=== PATIENT | male | born 1950 | race Caucasian/White ===

== ENCOUNTER → 2023-07-28 04:27 | Outpatient (CLI) | payer MEDICARE, SELFPAY ==
--- NOTE | 2023-07-28 | DI.MRI_ITS ---
Exam(s) MR BRAIN WO/W EXAM: MR BRAIN WO/W CLINICAL HISTORY: essential tremor,G25.0 TECHNIQUE: Multiplanar multisequence MRI of the brain was performed. CONTRAST MATERIAL: IV Contrast: 20 mL of Dotarem contrast administered. COMPARISON: MR MRI BRAIN WITHOUT CONTRAST from 06/06/2022 FINDINGS: VENTRICLES AND EXTRA AXIAL SPACES: Normal in size and morphology for the patient's age. HEMORRHAGE: None. CEREBRAL PARENCHYMA: No focus of restricted diffusion to suggest acute infarct. No space-occupying le caryl identified. Multiple foci of hyperintense signal in the white matter on the FLAIR and T2 weighte d images consistent with chronic microvascular ischemic disease. MIDLINE SHIFT: None. BRAINSTEM/CEREBELLUM: Normal. CALVARIUM: Normal. ENHANCEMENT: No suspicious enhancement identified. VISUALIZED PARANASAL SINUSES/MASTOIDS: Clear. [place]: Normal flow void. [place]: Unremarkable. OTHER FINDINGS: IMPRESSION: 1. Findings of chronic microvascular ischemic disease. 2. No acute intracranial process, infarct/mass or enhancing lesion. DATA REPOSITORY:
[2023-07-28 13:27] LABS: CREATININE 1.1 mg/dL (0.70-1.30); Estimated GFR 70.44 (mL/min/1.73m2)
[2023-07-28] MEDS: Normal Saline Flush 10 ML SYR IVP (13:43)
[2023-07-28] MEDS: Gadoterate meglumine 20 ML SYRINGE IVP (13:44)
== END ==
PROVIDERS: PCP Family Medicine; Visit Provider Neurological Surgery
DX: G25.0 Essential tremor (principal); I67.82 Cerebral ischemia
CPT/HCPCS: 70553; 82565

== ENCOUNTER → 2023-09-01 03:44 | Outpatient (CLI) | payer MEDICARE, SELFPAY ==
--- NOTE | 2023-09-01 15:17 | DI.RAD_ITS ---
Exam(s) XR LUMBAR SPINE COMPLETE EXAM: XR LUMBAR SPINE COMPLETE CLINICAL HISTORY: low back pain,m54.9. TECHNIQUE: 2D digital imaging was performed. COMPARISON: No exams were available for comparison FINDINGS: Eight views. There is transitional anatomy. There are 6 non rib-bearing vertebrae of lumbar configuration No evidence of fracture nor listhesis nor pars interarticularis defects. No significant scoliosis. There is mild multilevel disc space narrowing. There is multilevel facet arthropathy. No osseous le sions. Sacroiliac joints appear unremarkable. No osseous lesions.. IMPRESSION: Findings as above. Please also note that there is transitional anatomy in the lumbar spine. DATA REPOSITORY: RADIATION DOSE DELIVERED:
== END ==
PROVIDERS: PCP Family Medicine; Visit Provider Family Medicine
DX: M54.9 Dorsalgia, unspecified (principal)
CPT/HCPCS: 72110

== ENCOUNTER 2023-09-08 05:13 | Outpatient (CLI) | payer MEDICARE, SELFPAY ==
[2023-09-08 09:01] LABS: Anion Gap 7.5 mmol/L (3-11); BUN 25 mg/dL (7-18); CO2 30.5 mmol/L (21.0-32.0); CREATININE 1.2 mg/dL (0.70-1.30); Calcium 9.2 mg/dL (8.5-10.1); Calculated LDL 93 mg/dL (<100); Chloride 107 mmol/L (98-107); Cholesterol 170 mg/dL (<200); Estimated GFR 63.46 (mL/min/1.73m2); Glucose 114 mg/dL (74-106); HDL Cholesterol 61 mg/dL (40-60); Potassium 4.2 mmol/L (3.5-5.1); Sodium 145 mmol/L (136-145); Triglyceride 82 mg/dL (<150)
== END 2023-09-08 05:14 | disposition home or self-care (01) ==
LOC: LBO 05:13
PROVIDERS: PCP Family Medicine; Visit Provider Family Medicine
DX: E87.1 Hypo-osmolality and hyponatremia (principal); Z12.5 Encounter for screening for malignant neoplasm of prostate
CPT/HCPCS: 36415; 80048; 80061; 84153

== ENCOUNTER → 2023-10-21 01:40 | Outpatient (CLI) | payer MEDICARE, SELFPAY ==
--- NOTE | 2023-10-21 | DI.MRI_ITS ---
Exam(s) MR LUMBAR SPINE WO EXAM: MR LUMBAR SPINE WO CLINICAL HISTORY: PARESTHESIAS,R20.2,SPINAL STENOSIS WITH NEUROGENIC CLAUDICATION,M48.062. TECHNIQUE: Multiplanar multisequence MRI of the Lumbar spine was performed. COMPARISON: CR XR LUMBAR SPINE COMPLETE from 09/01/2023 FINDINGS: There is transitional anatomy with 6 non rib-bearing vertebrae of lumbar configuration. See plain fi lm images of 09/01/2023. Conus medullaris is at normal level. There is no evidence of conus mass nor subjacent clumping of in trathecal nerve roots to suggest arachnoiditis. The distal thecal sac appears unremarkable.There is no evidence of Tarlov intrasacral cysts nor other significant findings within the sacral canal Bones:There are no fractures nor ominous osseous lesions in the lumbar vertebral bodies and visualize d sacrum. There is mild anterolisthesis of L4 upon L5. There is some intraosseous bone edema in the right-sided pedicles of L4 and L5, as best seen on the STIR images. Possible subtle fracture or par s defect on the right side at this level at L4. With respect to the individual levels... T12-L1: Unremarkable L1-2: Mild annular bulging. No prominent disc herniation nor central canal stenosis.Central canal di mensions are lower normal. No foraminal stenosis. L2-3: There is relatively preserved disc height but decreased disc hydration signal and annular bulgi ng which is most prominent on the left side extending into the floor of the exiting left neural walter en. There is mild-moderate central spinal canal stenosis at this level due to short AP dimensions th e pedicles, annular bulging and mild degenerative changes in the facet joints at this level. There i s mild foraminal stenosis on the left side. No significant foraminal stenosis on the right side. L3-4: Normal disc height. There is broad symmetrical annular bulging without a dominant disc herniat ion. There is moderate central spinal canal stenosis due to short AP dimensions of the pedicles, the broad annular bulging and degenerative changes in the facet joints-moderate.There is no significant foraminal stenosis at this level.There is moderate bilateral facet arthropathy. L4-5: This level exhibits preserved disc height. There is a small benign intraosseous hemangioma in the left side of the L4 vertebral body. There is mild degenerative anterolisthesis L4 upon L5. Mild -moderate central spinal canal stenosis noted. This is related to annular bulging and short AP dimen sions the pedicles and degenerative changes in the facet joints. There is mild-moderate foraminal st enosis bilaterally at this level. L5-S1: Normal disc height and signal. No disc herniation or central spinal canal stenosis. No walter inal stenosis. No obvious facet arthropathy evident at this level. Soft tissues: paraspinal soft tissues appear unremarkable. IMPRESSION: 1. Multilevel mild-moderate central canal stenosis at L2-3, L3-4, and L4-5 levels which is most relat ed to short AP dimensions the pedicles, broad annular bulging and facet arthropathy. There is mild d egenerative anterolisthesis L4 upon L5. 2. Bone edema is noted in the right-sided pedicles at L4 and L5 level. Possible subtle right-sided p ars defect at this level versus subtle stress fractures. Can be further studied with CT scan with mu ltiplanar slice imaging through this area. 3. Other findings as above. DATA REPOSITORY:
== END ==
PROVIDERS: PCP Family Medicine; Visit Provider Nurse Practitioner Family
DX: M48.062 Spinal stenosis, lumbar region with neurogenic claudication (principal); R20.2 Paresthesia of skin
CPT/HCPCS: 72148

== ENCOUNTER 2024-02-08 10:42 | Outpatient (CLI) | payer MEDICARE, SELFPAY ==
--- NOTE | 2024-02-08 | DI.US_ITS ---
Exam(s) US LOWER EXTREMITY VENOUS RT EXAM: US LOWER EXTREMITY VENOUS RT CLINICAL HISTORY: Essential tremor, G25.0, Rt leg swelling, ? DVT, h/o DVT in lt leg TECHNIQUE: Grayscale, color, and doppler imaging of the deep venous system of the lower extremity w as performed. COMPARISON: No exams were available for comparison FINDINGS: This is positive-abnormal study with extensive DVT in the right lower extremity. There is extensive intraluminal thrombus within the right femoral vein throughout the length of the thigh and continuous into the popliteal vein and paired peroneal veins of the calf and there is also intraluminal thrombu s noted within the posterior tibial veins of the calf. The ipsilateral saphenous vein is patent throughout its length IMPRESSION: 1. Extensive DVT in the right lower extremity from the groin down through the calf as described soo juarez. This patient is at high risk for pulmonary embolus. DATA REPOSITORY:
== END 2024-02-08 11:02 ==
LOC: DI 10:43
PROVIDERS: PCP Family Medicine; Visit Provider Psychiatry & Neurology Neurology
DX: I82.411 Acute embolism and thrombosis of right femoral vein
CPT/HCPCS: 93971

== ENCOUNTER 2024-06-13 02:04 | Outpatient (CLI) | payer MEDICARE, SELFPAY ==
--- NOTE | 2024-06-13 14:51 | DI.RAD_ITS ---
Exam(s) RF MODIFIED SPEECH BA SWALLOW EXAM: RF MODIFIED SPEECH BA SWALLOW CLINICAL HISTORY: DYSARTHRIA, R47.1, DYSPHAGIA TECHNIQUE: Modified barium swallow was performed in conjunction with speech pathology. CONTRAST MATERIAL: Multiple consistencies of oral barium contrast were administered. COMPARISON: No exams were available for comparison FINDINGS: Note that this is not a dedicated esophagram, distal esophagus not evaluated. There is no evidence of aspiration or penetration with any consistency. There is mild vallecular res idue. There are endplate osteophytes which project anteriorly at C5-6. Barium tablet passed into the stomach without delay. Speech pathology report to follow. IMPRESSION: No evidence of aspiration or penetration. RADIATION DOSE DELIVERED: oscar [place]en[place]=9.31 mGy
--- NOTE | 2024-06-13 15:01 | ST.MBS_ITS ---
Date of Service Date of service: 06/13/24 Time of Service: 15:01 Modified Barium Swallow Study Findings: Video fluoroscopic Swallowing Evaluation (VFSE) / Modified Barium Swallow Study (MBSS) Speech Language Pathology Report Patient referred for VFSE/MBSS from Dr. Lopez Raygoza, Neurology given dysphagia and dysarthria in setting of DBS surgery for essential tremor. HPI & Patient report of function: Patient is a 74 year old M with essential tremor s/p DBS surgery now with residual dysarthria and some swallowing difficulties resulting from this. Patient reports that he developed dysarthria as a result of the stimulation, which has not resolved. He also reports increased difficulty with managing secretions, finds that he gets choked up on his saliva between meals. He reports coughing with liquids occasionally, about once a day. He also reports some trouble with pharyngeal stasis of dry solids. PMHx: All Active Problems (Updated 02/14/24 @ 10:43 by Conner Byrne MD) Recurrent deep vein thrombosis (DVT) (Acute) Urinary retention (Acute) Low back pain (Acute) Toxic effect of venom of bees, undetermined, sequela (Acute) Mixed hyperlipidemia (Acute) Medical History Prostatic hypertrophy Constipation GERD (gastroesophageal reflux disease) Lumbar stenosis Varicose veins of left lower extremity Essential tremor IMPRESSIONS: Overall swallow function appears safe. There is no aspiration or penetration into the airway. He does demonstrate some pharyngeal residue (valleculae and poserior surface of epiglottis with dry solid (cracker) but this is not replicated with puree consistencies. With liquids there is only scant residue of valleculae and pyriforms. There are some osteophytes which may mildly reduce bolus flow through UES resulting in scant residue within the UES, as well as some mild mid-esophageal residue of puree/solids which clears easily with liquid wash. Patient was as able to transit 13mm barium tablet through the pharynx and esophagus into stomach without difficulty when taken with water. It is of course possible that occasional incoordination of swallowing may result in penetration/aspiration episodes in setting of tremor that were not replicated on exam today, but given the infrequency of these episodes reported by the patient, I do not think it represents any notable risk for pulmonary complications. Regarding saliva management, provided education about possible sensorimotor feedback disruption which can result in less frequent spontaneous saliva swallows and resulting in increased coughing episodes such as these. This is also part of the normal aging process. Discussed strategy of spending 15-30 min each day with a timer to cue saliva swallows every 1min, and being mindful throughout the day to use effortful swallows to manage saliva. Losenges are also useful. Patient appears to be at low risk for potential aspiration PNA and/or pulmonary compromise and low risk for malnutrition, dehydration. Diet modification is not indicated; non-oral nutrition is not indicated. RECOMMENDATIONS: Diet Texture Recommendation:? IDDSI LEVEL SOLIDS 7-Regular Solids LIQUIDS 0-Thin Liquids Please see further details at?[email or web address] MEDICATIONS Whole with 0-Thin Liquids Diet texture modification is per patient's preference; please adjust diet textures at patient's discretion & collaboration with care team. Do not alter medications (e.g., cut)? without advice from your MD or pharmacist. Risk Management Strategies:? Behavioral reflux precautions, including upright position during + 90 mins after meals. Small sips, approx 10 mL Alternate solids/liquids as able Multiple swallows per bolus to encourage clearance of pharyngeal stasis/residue Control risk factors for aspiration pneumonia via (a) thorough oral hygiene & (b) maintaining physical mobility as tolerated Saliva management: Use intentional swallows to help reduce buildup of saliva. Take sugar free lozenges to encourage more frequent swallowing. PLAN: Patient reports there will be incoming [employer] referral for dysarthria assessment/treatment. May incorporate some review of above education/strategies into therapy at that time as needed. ----- OBJECTIVE Videofluoroscopic Swallow Evaluation (VFSE/MBSS) was conducted in the lateral projection by Speech-Language Pathologist, in collaboration with Radiologist, to evaluate oropharyngeal swallow function. Anatomic view under fluoroscopy: Mild C5-6 spinal changes changing shape of posterior wall of UES PO Barium Contrast Trials Oral barium water-soluble contrast was administered as follows: IDDSI Level 0 Varibar thin liquid (40% w/v) IDDSI Level 4 Varibar pudding/pureed/extremely thick (40% w/v) IDDSI Level 7 Regular Solid: 1/2 adrienne cracker coated in 3 mL Varibar pudding 13 mm barium tablet taken with Water. MBSImP Component Scores: COMPONENT Scale SCORE 1 Lip closure (0-4) 0 Resulted in no labial escape 2 Hold Position (0-3) 0 Maintained a cohesive bolus between tongue to palatal seal 3 Bolus Preparation (0-4) 0 Resulted in timely and efficient chewing and mashi ng 4 Bolus Transport (0-4) 0 Was with brisk tongue motion 5 Oral Residue (0-4) 2 Was a collection on oral structures 6 Swallow Initiation (0-4) 2 Occurred as bolus head at posterior laryngeal surface of epiglottis 7 Soft Palate Elevation (0-4) 0 Resulted in no bolus between soft palate and t he pharyngeal wall 8 Laryngeal Elevation (0-3) 1 Was decreased with partial superior movement of thyroid cartilage/ partial approximation of arytenoids to epiglottic petiole 9 Anterior Hyoid Motion (0-2) 1 Demonstrated partial anterior movement 10 Epiglottic Movement (0-2) 1 Resulted in partial inversion 11 Laryngeal Closure (0-2) 0 Was complete with no air or contrast in laryngeal vestibule 12 Pharyngeal Stripping Wave (0-2) 0 Was present and complete 13 Pharyngeal Contraction (0-3) NA 14 PES Opening (0-3) 1 Demonstrated partial distension/partial duration, with partial obstruction of flow 15 Tongue Base Retraction (0-4) 1 Allowed a trace column of contrast or air between tongue base and pharyngeal wall 16 Pharyngeal Residue (0-4) 2 Was a collection of residue within or on pharyngeal structures 17 Esophageal Clearance (0-4) NA Results: COMPONENT Scale SCORE 1 Oral Score (0-18) 4 2 Pharyngeal Score (0-29) 6 3 Esophageal Score (0-4) 0 Penetration-Aspiration Scale: COMPONENT Scale SCORE 1 Thin liquid (1-8) 1 Contrast did not enter the airway 2 [place] thick (1-8) NA 3 Honey thick (1-8) NA 4 Pudding thick (1-8) 1 Contrast did not enter the airway 5 Cookie (1-8) 1 Contrast did not enter the airway Trialed Compensatory Strategies & Outcome: Maneuvers Successful (+) Unsuccessful (-) Postures Successful (+) Unsuccessful (-) 3 second Preparatory Set? ?+/- Chin Tuck Posture? ? Cough? ? Posterior Head tilt? Reflexive? Cued? Throat Clear? ? Head Tilt to? Reflexive? Left? Cued? Right? ? Saliva swallow? ?+ Head Turn/Rotate to? ? Supraglottic Swallow? Left? ? Super-supraglottic Swallow? Right? ? Bolus Modifications Successful (+) Unsuccessful (-) Delivery/Alternating Consistencies ? Follow with Liquid Wash + ? Follow with Solid Bolus? Delivery/Via Straw? ? Reduced Volume? ? Reduced Rate of Intake? ? Increased Viscosity? ? Other:?? ? Thank you for allowing us to take part in this patient's care. Please feel free to contact the [facility] Speech Language Pathology Department with any questions/concerns.
[2024-06-13] MEDS: Barium Sulfate 700 MG TAB PO (15:06)
[2024-06-13] MEDS: Barium Sulfate Oral Paste 40% W/V 230 ML TUBE PO (15:06)
[2024-06-13] MEDS: Barium Sulfate 81% w/w for Oral Suspension 148 GM BTL PO (15:07)
== END 2024-06-13 02:24 ==
LOC: DI 02:04
PROVIDERS: PCP Family Medicine; Visit Provider Psychiatry & Neurology Neurology
DX: R47.1 Dysarthria and anarthria (principal); R13.10 Dysphagia, unspecified
CPT/HCPCS: 92526; 74221

== ENCOUNTER 2024-08-09 09:37 | Outpatient (CLI) | payer MEDICARE, SELFPAY ==
--- NOTE | 2024-08-09 | DI.US_ITS ---
Exam(s) US LOWER EXTREMITY VENOUS RT EXAM: US LOWER EXTREMITY VENOUS RT CLINICAL HISTORY: SWELLING RT LEG, H/O DVT,Z86.718 TECHNIQUE: Right lower extremity venous ultrasound performed using grayscale, color-flow, and spectr al Doppler analysis. COMPARISON: US US LOWER EXTREMITY VENOUS RT from 02/08/2024 FINDINGS: There is hypoechoic thrombus seen extending from the proximal right femoral vein through the poplitea l vein. The common femoral, profundus, posterior tibialis and greater saphenous veins are patent. T he saphenofemoral junction is unremarkable. There is no evidence of a [place] cyst. The soft tissues are unremarkable. IMPRESSION: DVT extending from the proximal right femoral vein to the popliteal vein. DATA REPOSITORY:
== END 2024-08-09 09:57 ==
LOC: DI 09:38
PROVIDERS: PCP Family Medicine; Visit Provider Internal Medicine Hematology & Oncology
DX: Z86.718 Personal history of other venous thrombosis and embolism (principal); Z09 Encounter for follow-up examination after completed treatment for conditions other than malignant neoplasm
CPT/HCPCS: 93971

== ENCOUNTER 2024-11-21 02:20 | Outpatient (CLI) | payer MEDICARE, SELFPAY ==
[2024-11-21 12:43] LABS: Hemoglobin A1C 6.0 % (<5.7)
== END 2024-11-21 02:21 | disposition home or self-care (01) ==
LOC: LBO 02:21
PROVIDERS: PCP Family Medicine; Visit Provider Family Medicine
DX: R73.9 Hyperglycemia, unspecified (principal)
CPT/HCPCS: 36415; 83036

== ENCOUNTER → 2025-02-06 08:46 | Outpatient (BNVA) | payer MEDICARE, SELFPAY | PROVIDERS: PCP Family Medicine; Referring Provider Family Medicine; Visit Provider Physical Therapy Assistant | DX: Z12.11 Encounter for screening for malignant neoplasm of colon (principal); Z80.0 Family history of malignant neoplasm of digestive organs; Z86.0109 Personal history of other colon polyps | CPT/HCPCS: S0285 ==

== ENCOUNTER 2025-03-08 08:02 | Day surgery (SDC) | payer MEDICARE, SELFPAY ==
[2025-03-08] VITALS (19 sets, daily range): BP systolic 94–147; BP diastolic 50–80; PULSE 65–82; RESP 12–24; TEMP 36.3–36.5; O2SAT 97–100; BMI 23.9
[2025-03-08] MEDS: Lactated Ringers 1,000 ML 80 ML IV (08:52)
--- NOTE | 2025-03-08 09:17 | W.ANESPRE ---
General Info Date of Service Date Performed: 03/08/25 Height: 6 ft 1 in Weight: 82.2 kg Body Mass Index (BMI): 23.9 Surgical Procedure: Operation Date: 03/08/25 09:50 Proposed Procedure Side Surgeon dimitry Syed MD Meds Allergies and Home Medications Allergies Allergy/AdvReac Type Severity Reaction Status Date / Time insect venom Allergy Unknown Anaphylaxis Verified 03/08/25 08:41 naproxen AdvReac Intermediate GI Bleeding Verified 03/08/25 08:41 codeine AdvReac Mild hives Verified 03/08/25 08:41 Home Medication Medication Instructions Recorded propranolol 60 mg capsule,24 60 mg PO DAILY 03/29/23 hr,extended release calcium carbonate 2,000 mg PO QHS 08/30/23 chlorpheniramine 4 1 tab PO Q4H PRN 08/30/23 mg-phenylephrine 10 mg tablet epinephrine 0.3 mg/0.3 mL 0.3 mg (0.3 mL) IM ONCE #2 ea 08/31/23 injection, auto-injector (EpiPen 2-Júnior) acetaminophen 500 mg tablet 500 mg PO Q6H PRN 06/18/24 nystatin-triamcinolone 100,000 1 applic topical DAILY PRN 06/18/24 unit/g-0.1 % topical cream atorvastatin 10 mg tablet 10 mg PO DAILY #90 tabs 09/24/24 fenofibrate nanocrystallized 145 145 mg PO DAILY #90 tabs 09/24/24 mg tablet apixaban 5 mg tablet (Eliquis) 5 mg PO BID #180 tabs 10/09/24 tamsulosin 0.4 mg capsule 0.8 mg (2 x 0.4 mg) PO DAILY #180 10/09/24 caps bisacodyl 5 mg tablet,delayed 5 mg PO ONCE #4 tabs 02/06/25 release (Dulcolax (bisacodyl)) polyethylene glycol 3350 17 17 g PO ONCE #238 grams 02/06/25 gram/dose oral powder topiramate 50 mg tablet 100 mg PO DAILY 02/06/25 Current Visit Medications: Current Medications Generic Name Dose Route Start Last Admin Trade Name Freq PRN Reason Stop Dose Admin Ringer's Solution 1,000 mls @ 80 mls/hr 03/08/25 06:00 03/08/25 08:52 IV 03/08/25 23:59 80 mls/hr INFUSION KATHERYN Administration IV Miscellaneous Supplies 1 each 03/08/25 06:00 Iv Access IV 03/08/25 23:59 DIRECTED KATHERYN Sodium Chloride 0 ml 03/08/25 06:00 Normal Saline Flush 10 Ml Syr IV 03/08/25 23:59 PRN PRN Sodium Chloride 0 ml 03/08/25 06:00 Normal Saline 10 Ml Vial IJ 03/08/25 23:59 DIRECTED PRN Sterile Water 0 ml 03/08/25 06:00 Water,Injection,Sterile 10 Ml Vial IJ 03/08/25 23:59 DIRECTED PRN PFSH Active Problems Active Problems: Problem Status Onset Code Hearing aid fitting or adjustment Acute Z46.1 Muscle strain, lower leg Acute S86.919A Hearing loss Acute H91.90 Family history of colon cancer Acute Z80.0 Dysarthria Acute R47.1 Recurrent deep vein thrombosis (DVT) Acute I82.409 Urinary retention Acute R33.9 Low back pain Acute M54.50 Toxic effect of venom of bees, undetermined, sequela Acute T63.444S Mixed hyperlipidemia Acute E78.2 Medical History Medical History Dysphagia, unspecified Prostatic hypertrophy Constipation GERD (gastroesophageal reflux disease) Lumbar stenosis Varicose veins of left lower extremity Essential tremor Surgical History Surgical History S/P deep brain stimulator placement Will need to be shut down prior to anesthesia Hx of vasectomy Tobacco Smoking/Tobacco Use Status: Current every day Tobacco Type: e-cigarettes Smokeless tobacco user: other Passive smoking exposure: Yes Second hand exposure: Yes Alcohol Alcohol Intake: current Alcohol intake frequency: holidays/special occasions only Alcohol type: beer Substance Use Substance use: Never Substance use type: does not use Vital Signs and Lab Results Vital Signs Most Recent Vital Signs in EMR: Most Recent Vital Signs Temp Pulse Resp BP Pulse Ox 36.3 C L 80 20 147/80 H 97 03/08/25 08:42 03/08/25 08:42 03/08/25 08:42 03/08/25 08:42 03/08/25 08:42 Anesthesia Assessment and Plan Anesthesia History Personal History: Other Family History: No Family History of Anesthesia Complications Exercise Tolerance Exercise Tolerance: Metabolic Equivalents>4 Pertinent Negatives Pertinent Negatives: No Major Cardiovascular Symptoms or Complaints, No Major Pulmonary Symptoms or Complaints and No History of CVA/TIA Cardiac & Pulmonary Exam Cardiac Exam: Normal S1/S2 Heart Sounds Pulmonary Exam: Clear Bilateral Breath Sounds Implantable Cardiac Device Does patient have a Pacemaker or an ICD?: No Airway Exam Known Difficult Airway: No Mallampati Class: 3 Mouth Opening: Normal (> 3cm) Thyromental Distance: Less than 3 cm Neck Range of Motion: Limited ROM Neck Circumference: Normal Teeth Condition: Normal Dentition ASA Classification ASA Score: ASA 3 Emergency Case?: No NPO Status NPO Status: NPO Clears >2 hours, Solids >8 hours Anesthesia Plan Resuscitation Status: Full Code Anesthesia Technique: General Anesthesia Airway Planned: Endotracheal Tube Monitors Used: Standard Monitors Preoperative Comments:: Severe nightly GERD symptoms. 2 Tums every night and sleeps upright on pillows. Plan is now a GETA. DBS to be turned off pre induction
--- NOTE | 2025-03-08 10:42 | BOWEL_PTH ---
PATIENT: Vern Morales LOC: [facility] U#:[id number] AGE/SX: 75/M ROOM: RE03/08/[address]: Isha Syed : 1950 BED: DIS: 03/08/2025 SPEC #: [id number] RECD: 03/08/25 12:53 STATUS: HOA REQ #: [id number] EUSEBIO: 03/08/25 10:[address]: Isha Syed DEPT: Surgical Specimen RECD BY: Flores Monet ENTERED: 03/08/25 12:53 SP TYPE: Bowel OTHR DR: Conner Byrne MD Tissues: 1 - BIOPSY BOWEL Procedures: GROSS AND MICRO LEVEL 4 Comments: [id number]
--- NOTE | 2025-03-08 10:50 | W.PM.DSUDISC ---
Date of service: 03/08/25 Discharge Plan Disposition Patient Disposition: Home Condition: Good Discharge Details Reason For Visit: History of colon polyps Attending Provider: Isha Syed Primary Care Provider: Conner Byrne Recommendations for Follow Up Recommended tests to be ordered by follow up provider: Follow up pathology Home Meds and New Rx's Prescriptions: Continued calcium carbonate 500 mg calcium (1,250 mg) tablet,chewable 2,000 mg PO QHS chlorpheniramine-phenylephrine 4-10 mg tablet 1 tab PO Q4H PRN tamsulosin 0.4 mg capsule 0.8 mg PO DAILY Qty: 180 3RF Rx Instructions: dose increase 01/30/24 Eliquis 5 mg tablet 5 mg PO BID Qty: 180 3RF topiramate 50 mg tablet 100 mg PO DAILY Patient Comments: Pt starting 100mg bid today 02/06/25 propranolol 60 mg capsule,extended release 24 hr 60 mg PO DAILY epinephrine [EpiPen 2-Júnior] 0.3 mg/0.3 mL auto-injector 0.3 mg IM ONCE Qty: 2 0RF Rx Instructions: as a single dose; may repeat once acetaminophen 500 mg tablet 500 mg PO Q6H PRN nystatin-triamcinolone 100,000-0.1 unit/g-% cream 1 applic topical DAILY PRN atorvastatin 10 mg tablet 10 mg PO DAILY Qty: 90 2RF fenofibrate nanocrystallized 145 mg tablet 145 mg PO DAILY Qty: 90 2RF Discontinued bisacodyl [Dulcolax (bisacodyl)] 5 mg tablet,delayed release (DR/EC) 5 mg PO ONCE Qty: 4 0RF Rx Instructions: Take per colonoscopy instructions provided by ordering providers office polyethylene glycol 3350 17 gram/dose powder 17 g PO ONCE Qty: 238 0RF Rx Instructions: Take per colonoscopy instructions provided by ordering providers office Discharge Instructions Additional Instructions: Your colonoscopy went well today. You did have multiple small polyps which were removed and sent to pathology. We will contact you when these results return. Please contact the general surgery office if you have any questions or concerns. 1. If tolerated, consume a soft, low fiber diet for 1-2 days. 2[address] Do not drive, drink alcohol, operate machinery, make critical decisions, or do activities that require coordination or balance for 24 hours. 3. Because air was put into your colon during the procedure, expelling air from your rectum (passing gas or farting) is normal. 4. You may not have a bowel movement for 1-3 days because of the colonoscopy prep. This is normal. 5. Go directly to the emergency room if you notice any of the following: Develop chills (warm to touch), or if you have a thermometer and your temperature is above 101 Difficulty breathing or difficultly swallowing Persistent vomiting Severe abdominal pain, other than gas cramps Severe chest pain Black, tarry stools Any bleeding – exceeding one tablespoon 6. Call your physician if the site where your intravenous was started becomes red, swollen, painful, and warm to touch. 7. Your physician has reviewed your pre-procedure medications. Please continue to take those medications as previously ordered. You will be given specific information/education regarding any changes to your medications before leaving. Stand Alone Forms: Portal Information Activity:: Activity as Tolerated Diet:: As Tolerated Discharge Orders Discharge Orders: Discharge Order (Routine); Ordered 03/08/25 Ordered By: Isha Syed
--- NOTE | 2025-03-08 10:52 | W.COLOREPORT ---
Date of service: 03/08/25 Time of Service: 10:53 Colonoscopy Report Date of procedure: 03/08/25 Pre-op diagnosis general: Personal history of colon polyps Post-op diagnosis procedure note: same Procedure: Colonoscopy with polypectomy Surgeon: Isha Syed Anesthesia Type: General LMA/ETT Estimated blood loss (mL): 1 Pathology: other (Multiple rectal polyps ) Complications: None Disposition: PACU Indications: Patient is a 75 yo male who presents for a colonoscopy due to a personal history of colon polyps. He also endorses a family history of colon cancer. Prep: Miralax/Dulcolax Procedure Start Time: 10:23 Procedure End Time: 10:44 Retraction Time: 16 Findings: Multiple small rectal polyps removed with cold forcep biopsy. Procedure Description: The patient was brought to the endoscopy suite and placed in the left lateral decubitus position. After induction of IV sedation, a digital rectal exam was performed. Digital exam showed evidence of skin tags. The colonoscope was then passed to the cecum without difficulty. Cecal intubation was confirmed by the identification of the ileocecal valve. Upon withdrawing the colonoscope, all mucosal surfaces were inspected. The prep was noted to be adequate. In the rectum there were multiple small polyps, which were removed using cold forceps. Specimens were retrieved for pathological analysis. There was no other evidence of mucosal abnormality, polyp or cancer. Retroflexion in the rectum was unremarkable. The patient tolerated the procedure well with no complications. Postoperatively, the patient was transferred to the recovery room in stable condition. [place] Bowel Prep [place] Bowel Prep Right Colon: 2 Left Colon: 3 Transverse Colon: 3 Total Score: 8
--- NOTE | 2025-03-08 11:19 | W.ANESPOSTOP ---
Postoperative Evaluation Date, Time and Location Date Performed: 03/08/25 Time Performed: 11:19 Patient Location: PACU Vital Signs Most Recent Imported Vital Signs: Most Recent Vital Signs Temp Pulse Resp BP Pulse Ox 36.5 C 75 17 136/75 99 03/08/25 10:53 03/08/25 11:11 03/08/25 11:11 03/08/25 11:11 03/08/25 11:11 Pain Score Most Recent Pain Score: Most Recent Pain Score Pain Level 0 03/08/25 08:42 Assessment Mental Status: Awake (Alert & Oriented to Patient Baseline) Airway and Respiratory Function: Patent airway with normal (patient baseline) respiratory exam Cardiovascular Function: Hemodynamically Stable Hydration Status: Adequately Hydrated Nausea & Vomiting: No Nausea or Vomiting Pain: Pt. Denies Any Pain Peripheral Nerve Block: Patient did not receive a nerve block
== END 2025-03-08 12:21 | disposition home or self-care (01) ==
PROVIDERS: PCP Family Medicine; Visit Provider Student in an Organized Health Care Education/Training Program
PROC: 0DJD8ZZ Inspection of Lower Intestinal Tract, Via Natural or Artificial Opening Endoscopic (ICD-10-PCS; CPT 45378; principal; 2025-03-08 09:45)
DX: Z12.11 Encounter for screening for malignant neoplasm of colon (principal); D12.8 Benign neoplasm of rectum
CPT/HCPCS: 45380; 88305; J2371; J2704